=== PATIENT | male | born 1980 | race Caucasian/White ===

== ENCOUNTER 2018-04-25 02:01 | Emergency (ER) | payer BC ==
[2018-04-25 02:55] LABS: CHLORIDE,CL 103 mmol/L (98-107); SODIUM,NA 141 mmol/L (136-145)
[2018-04-25] MEDS ORDERED: Potassium Chloride 20 MEQ Tab.ER PO ONE (03:11)
[2018-04-25] MEDS ORDERED: LORazepam 0.5 MG Tab PO ONE (03:11)
--- NOTE | 2018-04-25 03:17 | EDM.PDOC ---
ED HPI GENERAL MEDICAL PROBLEM - General Chief Complaint: Respiratory Problem Stated Complaint: SOB Time Seen by Provider: 04/25/18 02:39 Source of Information: Reports: Patient History Limitations: Reports: No Limitations - History of Present Illness INITIAL COMMENTS - FREE TEXT/NARRATIVE: Patient comes to ER for complaint of SOB. States that he was awake at home when he suddenly developed SOB/chest tightness. Had sensation of headache at same time. Called EMS. Upon EMS arrival it was found that patient had handheld inhaler available but he had not used it despite complaint of SOB. EMS had patient take a dose of the inhaler prior to transport. Upon arrival to ER patient appears comfortable. No obvious signs/symptoms of SOB. Calm. Has history of Asthma, tobacco use, epilepsy. Given the quick resolution of the respiratory complaint, patient was asked if he felt like he may have had anxiety at the time the symptoms began. Patient said that yes, he felt he was anxious. He denies having a history of anxiety or previous anxiety attacks. Admits to being a bit anxious at this time but not nearly as much as he was at home. No specific trigger that patient is aware of for an anxiety attack. He does note that his Tegretol was increased from 200mg BID to 400 qAM and 500mg qPM about a week ago. This was because of a recent break through seizure. Patient blames the seizure on being started on a cholesterol medication two months ago. He stopped taking that medication 2 days ago. Denies ETOH/drug use. - Related Data Allergies Allergy/AdvReac Type Severity Reaction Status Date / Time acetaminophen [From Lortab] Allergy Headache Verified 04/25/18 02:10 amoxicillin Allergy Vomiting Verified 04/25/18 02:10 hydrocodone [From Lortab] Allergy Headache Verified 04/25/18 02:10 Home Meds: Home Meds Albuterol Sulfate [Albuterol Sulfate Hfa] 8.5 gm IH Q4HR 04/25/18 [History] Potassium Chloride 10 meq PO DAILY #30 tab.er.prt 04/25/18 [Rx] carBAMazepine [Carbamazepine ER] 500 mg PO DAILY@1800 04/25/18 [History] carBAMazepine [Carbamazepine] 400 mg PO DAILY 04/25/18 [History] Past Medical History Cardiovascular History: Reports: High Cholesterol Respiratory History: Reports: Asthma Neurological History: Reports: Seizure Psychiatric History: Reports: Anxiety - Infectious Disease History Infectious Disease History: Reports: Chicken Pox Social & Family History - Tobacco Use Smoking Status *Q: Current Every Day Smoker Years of Tobacco use: 26 Packs/Tins Daily: 1 Smoking Cessation Information Provided To Patient: Patient Refused - Caffeine Use Caffeine Use: Reports: Soda - Alcohol Use Alcohol Use History: No - Recreational Drug Use Recreational Drug Use: No ED ROS GENERAL - Review of Systems Review Of Systems: See Below Constitutional: Reports: No Symptoms HEENT: Reports: No Symptoms Respiratory: Reports: Shortness of Breath. Denies: Wheezing, Pleuritic Chest Pain, Cough, Sputum, Hemoptysis Cardiovascular: Reports: No Symptoms. Denies: Chest Pain, Palpitations GI/Abdominal: Reports: No Symptoms : Reports: No Symptoms Musculoskeletal: Reports: No Symptoms Skin: Reports: No Symptoms Neurological: Reports: Headache (resolved). Denies: Weakness, Change in Speech , Gait Disturbance Psychiatric: Reports: Anxiety. Denies: Confusion, Depression, Hallucinations, Homicidal Ideation, Suicidal Ideation Hematologic/Lymphatic: Reports: No Symptoms ED EXAM, GENERAL - Physical Exam Exam: See Below Exam Limited By: No Limitations General Appearance: Alert, WD/WN, No Apparent Distress Eye Exam: Bilateral Eye: EOMI, PERRL Ears: Normal External Exam Nose: No: Nasal Deformity, Nasal Swelling, Nasal Drainage Throat/Mouth: Normal Inspection, Normal Lips, Normal Voice, No Airway Compromise , Other (Has no remaining teeth) Head: Atraumatic, Normocephalic Neck: Supple, Non-Tender Respiratory/Chest: No Respiratory Distress, Lungs Clear, Normal Breath Sounds, No Accessory Muscle Use, Chest Non-Tender Cardiovascular: Normal Peripheral Pulses, Regular Rate, Rhythm, No Edema, No Murmur Peripheral Pulses: 2+: Radial (L), Radial (R) GI/Abdominal: Normal Bowel Sounds, Soft, Non-Tender, No Distention (Male) Exam: Deferred Rectal (Males) Exam: Deferred Back Exam: Normal Inspection Extremities: Normal Inspection, Normal Range of Motion, Non-Tender, No Pedal Edema, Normal Capillary Refill Neurological: Alert, Oriented, Normal Cognition, Normal Gait, No Motor/Sensory Deficits Psychiatric: Normal Affect, Normal Mood Skin Exam: Warm, Dry, Intact, Normal Color Course - Vital Signs Last Recorded V/S: Last Vital Signs Temp 36.3 C 03/19/19 02:01 Pulse 84 04/25/18 02:01 Resp 20 04/25/18 02:01 BP 113/74 04/25/18 02:01 Pulse Ox 96 04/25/18 02:01 - Orders/Labs/Meds Orders: Active Orders 24 hr Category Date Time Status Chest 2V [CR] Stat Exams 04/25/18 02:20 Taken CARBAMAZEPINE,TEGRETOL [CHEM] Stat Lab 04/25/18 03:02 Ordered Labs: Laboratory Tests 04/25/18 04/25/18 04/25/18 Range/Units 02:35 02:35 02:35 WBC 10.3 H (4.0-10.2) K/uL RBC 4.69 (4.33-5.41) M/uL Hgb 14.6 (13.1-16.8) g/dL Hct 41.7 (39.0-49.0) % MCV 88.9 (84.0-98.0) fL MCH 31.1 (28.2-33.3) pg MCHC 35.0 (31.7-36.0) g/dL RDW 12.9 (11.2-14.1) % Plt Count 220 (150-350) K/uL Neut % (Auto) 59.1 (45.0-80.0) % Lymph % (Auto) 29.9 (10.0-50.0) % Churchill % (Auto) 9.5 (2.0-14.0) % Eos % (Auto) 1.3 (0.0-5.0) % Baso % (Auto) 0.2 (0.0-2.0) % Neut # (Auto) 6.07 (1.40-7.00) K/uL Lymph # (Auto) 3.06 (0.50-3.50) K/uL Churchill # (Auto) 0.97 (0.00-1.00) K/uL Eos # (Auto) 0.13 (0.00-0.50) K/uL Baso # (Auto) 0.02 (0.00-0.20) K/uL D-Dimer, Quantitative < 100 (0-400) ng/mL Sodium 141 (136-145) mmol/L Potassium 3.2 L (3.5-5.1) mmol/L Chloride 103 (98-107) mmol/L Carbon Dioxide 28.8 (21.0-32.0) mmol/L BUN 14 (7-18) mg/dL Creatinine 0.87 (0.51-1.17) mg/dL Est Cr Clr Drug Dosing 106.58 mL/min Estimated GFR (MDRD) > 60 mL/min Glucose 124 H (74-106) mg/dL Calcium 8.7 (8.5-10.1) mg/dL Total Bilirubin 0.2 (0.2-1.0) mg/dL AST 19 (15-37) U/L ALT 32 (12-78) U/L Alkaline Phosphatase 122 H (46-116) IU/L Troponin I (0.000-0.056) ng/mL Total Protein 6.9 (6.4-8.2) g/dL Albumin 3.9 (3.4-5.0) g/dL Carbamazepine (4-12) ug/mL 04/25/18 04/25/18 Range/Units 02:35 03:02 WBC (4.0-10.2) K/uL RBC (4.33-5.41) M/uL Hgb (13.1-16.8) g/dL Hct (39.0-49.0) % MCV (84.0-98.0) fL MCH (28.2-33.3) pg MCHC (31.7-36.0) g/dL RDW (11.2-14.1) % Plt Count (150-350) K/uL Neut % (Auto) (45.0-80.0) % Lymph % (Auto) (10.0-50.0) % Churchill % (Auto) (2.0-14.0) % Eos % (Auto) (0.0-5.0) % Baso % (Auto) (0.0-2.0) % Neut # (Auto) (1.40-7.00) K/uL Lymph # (Auto) (0.50-3.50) K/uL Churchill # (Auto) (0.00-1.00) K/uL Eos # (Auto) (0.00-0.50) K/uL Baso # (Auto) (0.00-0.20) K/uL D-Dimer, Quantitative (0-400) ng/mL Sodium (136-145) mmol/L Potassium (3.5-5.1) mmol/L Chloride (98-107) mmol/L Carbon Dioxide (21.0-32.0) mmol/L BUN (7-18) mg/dL Creatinine (0.51-1.17) mg/dL Est Cr Clr Drug Dosing mL/min Estimated GFR (MDRD) mL/min Glucose (74-106) mg/dL Calcium (8.5-10.1) mg/dL Total Bilirubin (0.2-1.0) mg/dL AST (15-37) U/L ALT (12-78) U/L Alkaline Phosphatase (46-116) IU/L Troponin I 0.000 (0.000-0.056) ng/mL Total Protein (6.4-8.2) g/dL Albumin (3.4-5.0) g/dL Carbamazepine 11 (4-12) ug/mL Meds: Medications Discontinued Medications Generic Name Dose Route Start Last Admin Trade Name Esdrasq PRN Reason Stop Dose Admin Lorazepam 0.5 mg 04/25/18 03:11 Ativan PO 04/25/18 03:12 ONETIME ONE Potassium Chloride 40 meq 04/25/18 03:11 Klor-Con M20 PO 04/25/18 03:12 ONETIME ONE - Radiology Interpretation Free Text/Narrative:: Chest xray did not show obvious acute changes such as pneumothorax/pneumonia/ enlarged heart. - Re-Assessments/Exams Free Text/Narrative Re-Assessment/Exam: Labs overall unremarkable except for mildly low K. Patient remained comfortable. Stated that he still felt mildly anxious but denied feeling SOB. Oral K given as well as single dose Ativan. Suspect anxiety/panic attack based on history/presentation and subsequent quick improvement. Cannot rule out possibility that episode is related to patient's recent increase in daily Tegretol dosing. Statin withdrawal is does not appear to be linked with anxiety however that too should be taken into account. Again, patient denies any other specific triggers for tonight's episode. Plan at this time is to let patient return home. Precautions reviewed. To follow up as needed if additional problems are experienced. Patient to follow up with primary provider as needed. He is encouraged to make follow up appointment if anxiety sensation continues. Oral potassium supplementation recommended. Free Text/Narrative Re-Assessment/Exam: 04/25/18 03:50 Patient sleeping at this time. Departure - Departure Time of Disposition: 03:47 Disposition: Home, Self-Care 01 Condition: Good Clinical Impression: Panic attack, Hypokalemia - Discharge Information *PRESCRIPTION DRUG MONITORING PROGRAM REVIEWED*: Not Applicable *COPY OF PRESCRIPTION DRUG MONITORING REPORT IN PATIENT JINA: Not Applicable Prescriptions: Potassium Chloride 10 meq PO DAILY #30 tab.er.prt Instructions: Hypokalemia, Panic Attack, [id number] Referrals: PCP,None [Primary Care Provider] - Forms: ED Department Discharge, ED Return to Work/School Form Additional Instructions: Observe for changes. Follow up as needed. As discussed in the ER, it is certainly possible that tonight's episode is linked to your recent medication changes. Your Tegretol level was 11 tonight. Normal is from 4-12. Check in with your doctor if the feeling of anxiety persists. Consider dosing change for Tegretol to see if that improves persistent anxiety. Get your potassium rechecked in one week. You should take a small daily dose of potassium to help increase your blood level. You were given a dose of medication to help with anxiety in the ER. This may make you tired. Avoid driving the next 12 hours. - My Orders Last 24 Hours: My Active Orders 04/25/18 02:20 Chest 2V [CR] Stat 04/25/18 03:02 CARBAMAZEPINE,TEGRETOL [CHEM] Stat - Assessment/Plan Last 24 Hours: My Active Orders 04/25/18 02:20 Chest 2V [CR] Stat 04/25/18 03:02 CARBAMAZEPINE,TEGRETOL [CHEM] Stat
== END 2018-04-25 07:00 | disposition home or self-care (01) ==
LOC: LL.ED 02:01
DX: F41.0 Panic disorder [episodic paroxysmal anxiety] (principal); E87.6 Hypokalemia; F17.210 Nicotine dependence, cigarettes, uncomplicated; Z88.8 Allergy status to other drugs, medicaments and biological substances; Z88.1 Allergy status to other antibiotic agents
CPT/HCPCS: 36415; 71046; 80053; 84484; 85025; 85379; 99285-25; A9270-GY